=== PATIENT | female | born 1985 | race Two or more races ===

== ENCOUNTER 2025-03-16 09:28 | Outpatient (AMB) | payer OTHER, SELFPAY ==
--- NOTE | 2025-03-16 09:37 | A.OFFPC_ITS ---
Vital Signs 03/16/25 09:47 Height 5 ft 7 in Weight 229 lb 2 oz BMI 35.9 BP 118/78 Blood Pressure Location Lt brachial Position Sitting Pulse 67 Pulse Source Pulse Oximeter Temp 97.9 F Temp Source Temporal Artery Scan Pulse Oximetry (%) 98 Oxygen Delivery Method Room Air Intake Visit Reasons: [facility] [employer]ER regular visit Intake Note: Leslie presents in the office today to establish care. Allergies Penicillins Allergy (Verified 03/16/25 09:41) Rash Tobacco use date assessed: 03/16/25 Dental Screening Dental Screen Date: 03/16/25 Did you have a dental visit in the last 12 months?: No Did you have a dental problem in the last 6 months where you did not have access to dental care?: Yes Was dental information given to patient?: Patient has dentist HPI HPI Comments History of Present Illness Details This is a 39-year-old female with a past medical history of osteopenia, early menopause, obesity and migraines presenting to establish care and have a physical exam. She transferred from Dr. Ragsdale, but it has been years since she was seen for a an appointment. No prior records are available in her chart. She is accompanied by her partner. Early menopause and osteopenia-last bone density exam was over 2 years ago. She is not taking calcium or vitamin-D. She does not smoke cigarettes. She is walking daily for exercise. Bone density exam and vitamin-D and calcium ordered. We reviewed recommendations for osteopenia including avoidance of tobacco use, weight-bearing activity and adequate vitamin-D and calcium supplementation. She has developed pain on the arches of both of her feet since she began walking, and she would like to see Podiatry. It is getting a little bit better. There is no numbness, tingling or weakness. Denies lower back pain. She is referred to Podiatry. Migraines-she has 0-2 headaches per month. 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 She has missed work a couple of times in his concerned about it. I advised the patient to check with her human resources department about FMLA and send the forms to me if she qualifies for this. She has chronic insomnia treated with melatonin 5 mg at bedtime. This is effective. Denies depression and anxiety. I refilled this medication for her. Sleep hygiene is also reviewed. Patient reports she had a CAT scan in the past which showed a right lung nodule. She says they did a biopsy which was negative, and she was told to repeat a CAT scan in a couple of years, but she is overdue. She has never smoked. She denies hemoptysis, cough, shortness of breath or chest pain. Cat scan ordered. Declines vaccines. ROS: Constitutional: No unexplained weight loss, fever, chills, fatigue or night sweats. Eyes: No vision changes, blurry vision, double vision, eye pain, eye redness, eye discharge. ENT: No hearing loss, sneezing, congestion, runny nose or sore throat. Respiratory: No shortness of breath, cough or sputum production. Cardiovascular: No chest pain, chest pressure or chest discomfort. No palpitations or pedal edema. Gastrointestinal: No anorexia, nausea, vomiting or diarrhea. No abdominal pain or blood in stool. Genitourinary: No dysuria, hematuria, urinary frequency. Neurologic: No headache, dizziness, syncope, unilateral weakness, ataxia, numbness or tingling in the extremities. Musculoskeletal: No back pain, joint pain or swelling. Hematologic/Lymphatics: No bleeding or bruising. No painful lymph nodes. Skin: No rash Endocrine: No cold or heat intolerance. No polyuria or polydipsia. Psychiatric: No depression or anxiety. No SI/HI. Physical exam: Constitutional: Alert, in no distress. Head: Normocephalic. Eyes: Pupils are equal, round and reactive to light. Extraocular muscles intact. Ear, Nose and Throat: Canals clear. TMs normal. Normal nasal mucosa. No nasal discharge. No oral lesions. Neck: Supple, Full range of motion. No lymphadenopathy. No palpable thyroid masses. Respiratory: Clear to auscultation. Cardiovascular: S1 S2 regular. No murmurs. Gastrointestinal: Abdomen soft, non-tender, non-distended. Normal bowel sounds. No palpable masses. Neurologic: No focal neurological deficits. Symmetric patellar reflexes. Moves all extremities spontaneously. Sensation intact bilaterally. Skin: No rashes Musculoskeletal: No gross deformities. Normal range of motion. Right foot: Warm and well perfused. No clubbing, cyanosis or edema. Intact DP pulse. Sensation intact. Nontender. Left foot: Warm and well perfused. No clubbing, cyanosis or edema. Intact DP pulse. Sensation intact. Nontender. Psychiatric: Normal mood and affect FOR[facility], [facility] Medical History (Updated 03/16/25 @ 10:16 by SHILPA Zaragoza) Bilateral foot pain Early menopause Pulmonary nodule Routine physical examination Osteopenia Screening for cardiovascular condition Family History (Updated 03/16/25 @ 09:58 by Anamaria Marie MA) Mother Asthma Hypertension Hyperlipemia Diabetes History of thyroid disorder Father Asthma Hypertension Hyperlipemia Diabetes Maternal Grandmother Diabetes Social History (Updated 03/16/25 @ 09:46 by Anamaria Marie MA) Housing: House Alcohol intake: current Patient Tobacco Use Status: Never used Tobacco e-Cigarette/Vaping Use: Never Used Second Hand Smoke Exposure: No service: No Current occupational status: employed Current occupation: Straight Truck Driver, [employer] Current occupational exposures/hazards: No Cognitive needs: No Hearing needs: No Vision needs: No Questionnaire PHQ-9 Over the last 2 weeks, how often have you been bothered by any of the following problems? 1. Little interest or pleasure in doing things: not at all 2. Feeling down, depressed, or hopeless: not at all 3. Trouble falling or staying asleep, or sleeping too much: several days 4. Feeling tired or having little energy: several days 5. Poor appetite or overeating: not at all 6. Feeling bad about yourself - or that you are a failure or have let yourself or your family down: not at all 7. Trouble concentrating on things, such as reading the newspaper or watching television: not at all 8. Moving or speaking so slowly that other people could have noticed. Or the opposite - being so fidgety or restless that you have been moving around a lot more than usual: not at all 9. Thoughts that you would be better off or of hurting yourself in some way: not at all Total score: 2 Depression Screening Interpretation: Negative Depression Screening Done: Yes 37528 - PHQ-9 Billing: Yes Source: Developed by Drs. Sancho Burnham, Xiomy Ortiz, Darin Donnelly and colleagues, with an educational celso from [employer]. Thrive Questionnaire Date Thrive assessed: 03/16/25 I am a: Patient What is your living situation today?: I have a steady place to live Within the past 12 months, did the food you bought not last and you didn't have the money to get more?: Never true Within the past 12 months, did you worry whether your food would run out before you got money to buy more?: Never true Do you have trouble paying for medicines?: I choose not to answer this question Do you have trouble getting transportation to medical appointments?: No Do you have trouble paying your heating and electricity bill?: No Do you have trouble taking care of your child, family member or friend?: No Do you have trouble with day-to-day activities such as bathing, preparing meals, shopping, managing finances, etc.?: No Are you currently unemployed and looking for a job?: No Are you interested in more education?: I choose not to answer this question Currently or been in a relationship where the following occur: I choose not to answer THRIVE Score: 0 AUDIT C Alcohol Use Questionnaire (AUDIT-C) 1. How often do you have a drink containing alcohol?: Monthly or less 2. How many drinks containing alcohol do you have on a typical day when you are drinking?: 1 or 2 3. How often do you have six or more drinks on one occasion?: Never Total Score: 1 Score Reviewed/Action Taken: No FADI-7 AMB Questionnaire FADI-7 Date FADI - 7 assessed: 03/16/25 Feeling nervous, anxious, or on edge: 0 = Not at all Not being able to stop or control worryin = Not at all Worrying too much about different things: 0 = Not at all Trouble relaxin = Not at all Being so restless that it is hard to sit still: 0 = Not at all Becoming easily annoyed or irritable: 0 = Not at all Feeling afraid as if something awful might happen: 0 = Not at all Total FADI-7 score (0-4 normal; 5-9 mild; 10-14 moderate; 15-21 severe): 0 Source: Developed by Drs. Sancho Burnham, Xiomy Ortiz, Darin Donnelly and colleagues, with an educational celso from [employer]. FADI-7 Assessment Billing FADI-7 Assessment Tool: FADI-7 Assessment 78622 Physical exam (Primary Care) Vital Signs: Last Vital Signs Temp 97.9 F 03/16/25 09:47 Pulse 67 03/16/25 09:47 BP 118/78 03/16/25 09:47 Pulse Ox 98 03/16/25 09:47 Oxygen Delivery Method Room Air 03/16/25 09:47 BMI result Body Mass Index 35.9 Tobacco/Smoking Status: Tobacco use Status Tobacco use date assessed 03/16/25 03/16/25 09:50 Patient Tobacco Use Status Never used Tobacco 03/16/25 09:50 e-Cigarette/Vaping Use Never Used 03/16/25 09:50 PHQ-9: PHQ-9 Score PHQ-9: Total score 2 03/16/25 10:23 Depression Screening Interpretation: Negative Thrive Assessment: Date of Thrive Assessment Date Thrive assessed 03/16/25 03/16/25 09:39 Currently or been in a relationship where the following occur: I choose not to answer Coding Level of Care Code New Pt Prev Care 40-64y(98248) Diagnoses Screening for cardiovascular condition Z13.6 Osteopenia M85.80 Routine physical examination Z00.00 Pulmonary nodule R91.1 Additional Codes FADI-7 Assessment Billing - FADI-7 Assessment Tool: FADI-7 Assessment 78524 ([id number]) PHQ-9 - 47516 - PHQ-9 Billing: Yes ([id number]) Assessment & Plan Assessment & Plan (1) Screening for cardiovascular condition: Code(s): Z13.6 - Encounter for screening for cardiovascular disorders Category: Medical (2) Osteopenia: Code(s): M85.80 - Other specified disorders of bone density and structure, unspecified site Category: Medical (3) Routine physical examination: Code(s): Z00.00 - Encounter for general adult medical examination without abnormal findings Category: Medical Plan: Patient is seen today for a routine physical. As part of this visit we reviewed the following issues, which are considered and essential part of preventative health in this age group: - Breast Cancer screening - Annual Software Quality Automation Engineer exam - Blood pressure screening annually - Cholesterol screening - Osteoporosis prevention including calcium/vitamin D intake, weight bearing exercise & smoking cessation - Nutritional and exercise counseling - Counseling of injury prevention including fire prevention, smoke alarms and seat belt usage - Screening for depression - Education about skin cancer - Recommendations about immunizations - Recommendation of an eye exam - Screening for substance abuse (4) Pulmonary nodule: Code(s): R91.1 - Solitary pulmonary nodule Category: Medical Plan Schedule physical in 1 year. Orders: Orders Lipid Panel 03/16/25 E78.5 - Hyperlipidemia, unspecified, M85.80 - Other specified disorders of bone density and structure, unspecified site, R91.1 - Solitary pulmonary nodule, Z00.00 - Encounter for general adult medical examination without abnormal findings, Z13.6 - Encounter for screening for cardiovascular disorders Complete Blood Count no Diff 03/16/25 M85.80 - Other specified disorders of bone density and structure, unspecified site, R91.1 - Solitary pulmonary nodule, Z00.00 - Encounter for general adult medical examination without abnormal findings, Z13.6 - Encounter for screening for cardiovascular disorders Vitamin D 25-OH (D2 and D3) 03/16/25 M85.80 - Other specified disorders of bone density and structure, unspecified site MM screening mammo BI 03/16/25 Z12.31 - Encounter for screening mammogram for malignant neoplasm of breast TSH reflex Free T4 03/16/25 M85.80 - Other specified disorders of bone density and structure, unspecified site, R91.1 - Solitary pulmonary nodule, Z00.00 - Encounter for general adult medical examination without abnormal findings, Z13.6 - Encounter for screening for cardiovascular disorders Comprehensive Met. Panel 03/16/25 M85.80 - Other specified disorders of bone density and structure, unspecified site, R91.1 - Solitary pulmonary nodule, Z00.00 - Encounter for general adult medical examination without abnormal findings, Z13.6 - Encounter for screening for cardiovascular disorders XR DEXA axial skeleton 03/16/25 E28.319 - Asymptomatic premature menopause, M85.80 - Other specified disorders of bone density and structure, unspecified site CT chest wo IV con Today R91.1 - Solitary pulmonary nodule Referrals PASTE MAKER Referral Z01.419 - Encounter for gynecological examination (general) (routine) without abnormal findings Podiatry Referral M79.671 - Pain in right foot, M79.672 - Pain in left foot Medications: New melatonin 5 mg PO BEDTIME PRN 90 tabs 3RF sleep Patient Instructions: Ask work about FMLA forms
[2025-03-16 09:47] VITALS: BP 118/78; PULSE 67; TEMP 36.6; O2SAT 98; BMI 35.9
== END 2025-03-16 11:17 | disposition home or self-care (01) ==
LOC: HO.HMCFM 09:29
PROVIDERS: PCP Physician Assistant Medical; Visit Provider Physician Assistant Medical
DX: Z13.6 Encounter for screening for cardiovascular disorders (principal); M85.80 Other specified disorders of bone density and structure, unspecified site; Z00.00 Encounter for general adult medical examination without abnormal findings; R91.1 Solitary pulmonary nodule

== ENCOUNTER → 2025-03-16 09:28 | Outpatient (BNVA) | payer OTHER, SELFPAY | PROVIDERS: PCP Physician Assistant Medical; Visit Provider Physician Assistant Medical | DX: Z00.00 Encounter for general adult medical examination without abnormal findings (principal); M85.80 Other specified disorders of bone density and structure, unspecified site; R91.1 Solitary pulmonary nodule | CPT/HCPCS: 96127; 99386 ==

== ENCOUNTER 2025-03-21 09:08 | Outpatient (REF) | payer OTHER, SELFPAY ==
[2025-03-21 09:54] LABS: Hematocrit 42.7 % (37.0-47.0); Hemoglobin 14.3 g/dl (12.0-16.0); Mean Corpuscular HGB Conc 33.5 g/dl (31.0-35.0); Mean Corpuscular Hemoglobin 28.1 pg (27.0-33.0); Mean Corpuscular Volume 83.9 fL (80.0-98.0); Mean Platelet Volume 11.2 fL (9.4-12.3); Platelet Count 250 X10*3/uL (160-400); Red Blood Count 5.09 X10*6/uL (4.20-5.50); Red Cell Distribution Width 13.3 % (11.0-16.0); White Blood Count 6.4 X10*3/uL (4.8-10.8)
[2025-03-21 10:31] LABS: Alanine Aminotransferase 59 U/L (0-31); Albumin Level 4.4 g/dL (3.5-5.0); Alkaline Phosphatase 82 U/L (39-117); Anion Gap 11 (12-20); Aspartate Amino Transferase 38 U/L (5-31); Bilirubin Total 0.8 mg/dL (0.0-1.0); Blood Urea Nitrogen 15 mg/dL (9-16); Calcium 9.1 mg/dL (8.4-10.2); Carbon Dioxide 29 mmol/L (22-29); Chloride 105 mmol/L (96-108); Cholesterol 207 mg/dL (<200); Estimated Glomerular Filt Rate 54; Glucose Random 104 mg/dL (60-115); HDL Cholesterol 49 mg/dL (>40); LDL Cholesterol Calculated 137 mg/dL (<100); Potassium 4.2 mmol/L (3.3-5.1); Sodium 141 mmol/L (135-145); Total Protein 7.8 g/dL (6.5-8.0); Triglycerides 109 mg/dL (<150)
[2025-03-21 10:58] LABS: TSH reflex Free T4 4.26 uIU/mL (0.32-4.0)
[2025-03-21 11:58] LABS: Free T4 (Free Thyroxine) 0.88 ng/dL (0.71-1.85)
[2025-03-25 17:49] LABS: Vitamin D 25-OH, D2 5 ng/mL; Vitamin D 25-OH, D3 16 ng/mL; Vitamin D 25-OH, Total 21 ng/mL (30-100)
== END 2025-03-21 09:09 | disposition home or self-care (01) ==
LOC: HO.LAB 09:08
PROVIDERS: PCP Physician Assistant Medical; Visit Provider Physician Assistant Medical
DX: Z00.00 Encounter for general adult medical examination without abnormal findings (principal); E78.5 Hyperlipidemia, unspecified; Z13.6 Encounter for screening for cardiovascular disorders; M85.80 Other specified disorders of bone density and structure, unspecified site; R91.1 Solitary pulmonary nodule
CPT/HCPCS: 36415; 80053; 80061; 82306; 84439; 84443; 85027